=== PATIENT | female | born 2000 | race Caucasian/White ===

== ENCOUNTER 2022-09-19 13:55 | Emergency (ER) | payer MEDICAID ==
[~2022-09-19] VITALS: Ht 157.5 cm; Wt 49.0 kg
[2022-09-19 14:23] LABS: *BILIRUBIN,URIN NEGATIVE (NEGATIVE); *BLOOD, URINE 3+ (NEGATIVE); *COLOR,URINE YELLOW (YELLOW); *KETONES,URINE NEGATIVE (NEGATIVE); *UROBILINOGEN,URINE 0.2 E.U./dl (NORMAL); LEUKOCYTE ESTERASE ,URINE NEGATIVE (NEGATIVE); NITRITE, URINE NEGATIVE (NEGATIVE); UGLUCOSE NEGATIVE (NEGATIVE)
[2022-09-19 14:34] LABS: *CLARITY,URINE SLIGHTLY CLOUDY (CLEAR)
[2022-09-19 14:34] LABS: MEAN CORPUSCULAR HEMOGLOBIN 30.8 uug (24.7-32.8); MEAN CORPUSCULAR VOLUME 92.7 fL (75.5-95.3); PLATELET COUNT (AUTO) 290 K/uL (179-408)
[2022-09-19 14:38] LABS: CARBON DIOXIDE 27 mmol/L (21-32); CHLORIDE 105 mmol/L (98-107); CREATININE 0.5 mg/dL (0.6-1.3); GLUCOSE 127 mg/dL (74-106); POTASSIUM 3.8 mmol/L (3.5-5.1); UREA NITROGEN, BLOOD 5 mg/dL (7-18)
[2022-09-19 14:48] LABS: BACTERIA,URINE FEW /HPF (NONE SEEN); SQUAMOUS EPITHELIAL CELL,UR FEW /HPF (NONE SEEN); WBC,URINE 0-3 /HPF (0-3)
[2022-09-19 14:49] LABS: URINE AMORPHOUS URATE MANY /HPF
[2022-09-19] MEDS ORDERED: PREN1TAB81 PO (15:53)
[2022-09-19] MEDS ORDERED: ONDANSETRON 4 MG/2 ML VIAL ONE (15:59)
--- NOTE | 2022-09-19 16:30 | NUR ---
Gave pt d/c instructions, pt verbalized understanding.
== END 2022-09-19 16:35 | disposition home or self-care (01) ==
LOC: ER 13:55
DX: O20.0 Threatened abortion (principal); Z3A.10 10 weeks gestation of pregnancy; Z88.0 Allergy status to penicillin
CPT/HCPCS: 36415; 76856; 85025; 85730; 86850; 86900; 86901; 87086; A4663; J2405